=== PATIENT | male | born 1985 | race Caucasian/White ===

== ENCOUNTER → 2020-10-30 | Outpatient (CLI) | payer OTHER ==
[2020-10-30 09:52] LABS: RED BLOOD COUNT 4.78 M/UL (4.20-5.50); WHITE BLOOD COUNT 8.9 K/UL (4.5-11.0)
[2020-10-30 10:11] LABS: BUN/CREATININE RATIO 13 (0-10)
[2020-11-03 01:08] LABS: QUANTIFERON MITOGEN VALUE >10.00 IU/mL (.); QUANTIFERON NIL VALUE 0.04 IU/mL (.); QUANTIFERON TB1 AG VALUE 0.03 IU/mL (.); QUANTIFERON TB2 AG VALUE 0.02 IU/mL (.); QUANTIFERON-TB GOLD PLUS Negative (Negative)
== END ==
LOC: LAB 07:33
PROVIDERS: Physician Assistant
DX: K50.818 Crohn's disease of both small and large intestine with other complication (principal)
CPT/HCPCS: 36415; 80053; 85025; 86140